=== PATIENT | male | born 2005 | race African-American/Black ===

== ENCOUNTER 2023-06-17 00:06 | Emergency (ER) | payer BC ==
[2023-06-17] MEDS ORDERED: Ketorolac Tromethamine 30 MG (1 mL) VIAL ONE (00:56)
[2023-06-17] MEDS ORDERED: Acetaminophen 500 MG TAB ONE (00:57)
[2023-06-17 01:28] LABS: #Eosinphils 0.1 10x3/uL (0.0-0.5); #Monocytes 0.3 10x3/uL (0.0-1.1); %Basophils 0.8 % (0.0-2.0); %Eosinophils 2.1 % (0.0-6.0); %Lymphocytes 35.8 % (18.0-47.0); %Monocytes 8.8 % (0.0-10.0); %Neutrophils 52.5 % (40.0-75.0); Hematocrit 38.7 % (38.8-50.0); Hemoglobin 13.6 g/dL (13.5-17.5); Mean Corpuscular HGB CONC 35.1 g/dL (32.0-36.0); Mean Corpuscular Hemoglobin 31.3 pg (27.0-33.0); Mean Corpuscular Volume 89.2 fl (81.2-95.1); Mean Platelet Volume 10.7 fl (7.4-10.4); Platelet Count 207 10x3/uL (150-450); RBC Distribution Width 11.2 % (11.5-14.5); Red Blood Cell (RBC) Count 4.34 10x6/uL (4.32-5.72); White Blood Cell (WBC) Count 3.9 10x3/uL (3.5-10.5)
[2023-06-17 01:44] LABS: Anion Gap 12 mmol/L (10-20); BUN (Urea Nitrogen) 14 mg/dL (8.4-21.0); Calc. Creatinine Clearance 0 mL/min (70-130); Calcium 9.5 mg/dL (7.8-10.44); Carbon Dioxide 25 mmol/L (22-29); Chloride 107 mmol/L (98-107); Estimated GFR 128; Glucose 103 mg/dL (70-105); Lipase 26 U/L (8-78); Potassium 3.5 mmol/L (3.5-5.1); Sodium 140 mmol/L (136-145)
[2023-06-17 01:50] LABS: Troponin I Less than 0.010 ng/mL (< 0.028)
== END 2023-06-17 03:09 | disposition home or self-care (01) ==
LOC: CSHERS 00:06
DX: S60.811A Abrasion of right wrist, initial encounter (principal); M62.838 Other muscle spasm; V89.2XXA Person injured in unspecified motor-vehicle accident, traffic, initial encounter
CPT/HCPCS: 29125; 36415; 70450; 71045; 72125; 80048; 83690; 84484; 85025; 93005; 96374; G0390; J1885